=== PATIENT | male | born 1945 | race Caucasian/White ===

== ENCOUNTER → 2017-09-09 | Day surgery (SDC) | payer MEDICARE, BC ==
[~2017-09-09] MED LIST: ALPR0.254 PO; DIGO250T PO; FURO40TA4 PO; HYDROmorphone 2 MG/ML VIAL IV PRN; IV RINGERS,LACTATED 1000ML 1,000 ML IV SCH; LEXAPRO20 MG PO; LEXAPRO5 MG PO; LIDOCAINE 1% PF 2 ML VIAL. ID PRN; LOSA1TAB22 PO; MORPHINE SULFATE 2 MG/ML DISP.SYRIN. IV PRN; OMEP40CA2 PO; ONDANSETRON PF 4 MG/2 ML VIAL. IV PRN; PRED5TAB19 PO; PROCHLORPERAZINE 10 MG/2 ML VIAL. IV PRN; PROPOFOL 20 ML IV ONE; WARF5TAB7 PO; fentaNYL PF VIAL 100 MCG/2 ML VIAL IV PRN
[2017-09-09 10:35] VITALS: BP 161/100
--- NOTE | 2017-09-09 12:03 | CONS ---
DATE OF CONSULTATION: 09/09/2017 REFERRING PHYSICIAN: Marlo Juares MD REASON FOR CONSULTATION: Dysphagia. HISTORY OF PRESENT ILLNESS: A 72-year-old male whose past medical history is significant for organic heart disease, hypertension, AFib, as well as reflux with esophageal stricture, seen with recurrent stricture with difficulty swallowing solids and liquids. His weight has been stable despite these issues. He also takes omeprazole 40 mg daily for reflux with continued issues and requests additional evaluation. PAST MEDICAL HISTORY: Hypertension, AFib, palpitations, history of reflux, history of esophageal stricture. ALLERGIES: None. MEDICATIONS: Include ____ mg daily, Lexapro 5 mg daily, losartan/hydrochlorothiazide 1 daily, Prilosec 40 mg daily, prednisone 5 mg b.i.d. and warfarin 5 mg daily. SOCIAL HISTORY: He is a former smoker, social drinker. FAMILY HISTORY: Significant for hypertension, CVA, organic heart disease and [place]. REVIEW OF SYSTEMS: Per records. PAST SURGICAL HISTORY: Status post eye surgery. PHYSICAL EXAMINATION: GENERAL: Reveals a well-nourished, well-developed male who is alert, cooperative, in mild distress. VITAL SIGNS: Temperature 97.4, pulse 73, respirations 20. HEENT: Normocephalic and atraumatic head. Pupils and extraocular muscles not tested. Sclerae anicteric. NECK: Supple. LUNGS: Clear. CARDIOVASCULAR: Reveals S1, S2 without S3, S4 or appreciable murmur. ABDOMEN: Soft abdomen, normal bowel sounds, without appreciable hepatosplenomegaly. IMPRESSION: Dysphagia with a history of stricture and recurrent symptoms. We will recommend upper endoscopy with possible biopsy and dilatation as he has improved in the past. Risks and benefits have been previously discussed with the patient and he is willing to proceed at this time. LETITIA TROTTER MD DR: JANIE/roe JOB#: [id number] / [id number] [facility] Records, Medical
== END | disposition home or self-care (01) ==
LOC: ENDOS 09:10
PROVIDERS: ATTEND Internal Medicine Gastroenterology
DX: K22.2 Esophageal obstruction (principal); K29.50 Unspecified chronic gastritis without bleeding; I48.91 Unspecified atrial fibrillation; F41.9 Anxiety disorder, unspecified; F32.9 Major depressive disorder, single episode, unspecified; F17.200 Nicotine dependence, unspecified, uncomplicated; Z87.39 Personal history of other diseases of the musculoskeletal system and connective tissue; Z86.69 Personal history of other diseases of the nervous system and sense organs; Z86.73 Personal history of transient ischemic attack (TIA), and cerebral infarction without residual deficits
CPT/HCPCS: 43235; 43450; J2704